=== PATIENT | male | born 1940 | race Caucasian/White ===

== ENCOUNTER 2019-10-27 12:18 | Outpatient (CLI) | payer MEDICARE, OTHER ==
[2019-10-27] VITALS (22 sets, daily range): BP systolic 131–156; BP diastolic 73–102
[~2019-10-27 12:18] MED LIST: ASPI-1264 PO; COLC0.6T66 PO; GLUC1CAP17 PO; IND25C PO; NIAC-23 PO; OMEG1CAP54 PO; RED600TA PO; SAW1CAPS3 PO; SOTA80TA73 PO
== END 2019-10-27 23:59 | disposition home or self-care (01) ==
LOC: CARD DIAG 12:18
PROVIDERS: ATTEND Internal Medicine Cardiovascular Disease
DX: R55 Syncope and collapse (principal)
CPT/HCPCS: 93660

== ENCOUNTER 2019-12-03 05:56 | Day surgery (SDC) | payer MEDICARE, OTHER ==
[2019-12-02 12:09] LABS: BASOPHILS # (AUTO) 0.1 X10'3 (0-0.2); EOSINOPHILS # (AUTO) 0.2 X10'3 (0-0.9); EOSINOPHILS % (AUTO) 2.9 % (0-6); HEMOGLOBIN 14.5 g/dl (14.0-17.9); LYMPHOCYTES # (AUTO) 0.9 X10'3 (1.1-4.8); LYMPHOCYTES % (AUTO) 16.8 % (21-51); MEAN CORPUSCULAR HEMOGLOBIN 33.9 PG (27.0-31.0); MEAN CORPUSCULAR HGB CONC 33.8 g/dL (33.0-36.5); MEAN CORPUSCULAR VOLUME 100.3 FL (78-98); MEAN PLATELET VOLUME 8.6 FL (7.4-10.4); MONOCYTES # (AUTO) 0.5 X10'3 (0-0.9); MONOCYTES % (AUTO) 9.3 % (2-12); NEUTROPHILS # (AUTO) 3.8 X10'3 (1.8-7.7); PLATELET COUNT 203 X10'3 (140-440); RED BLOOD COUNT 4.29 X10'6 (4.70-6.10); RED CELL DISTRIBUTION WIDTH 13.8 % (11.5-14.5); WHITE BLOOD COUNT 5.5 X10'3 (4.5-11.0)
[2019-12-02 12:22] LABS: PARTIAL THROMBOPLASTIN TIME 29 SECONDS (22-32)
[2019-12-02 12:23] LABS: ALBUMIN 3.3 G/DL (3.4-5.0); ANION GAP 7 (8-16); BLOOD UREA NITROGEN 21 MG/DL (7-18); BUN/CREATININE RATIO 17.8 (5.4-32.0); CALCIUM 8.4 MG/DL (8.5-10.1); CHLORIDE 105 MMOL/L (99-107); CREATININE 1.18 MG/DL (0.60-1.10); POTASSIUM 4.7 MMOL/L (3.5-5.1); SODIUM 141 MMOL/L (135-145); TOTAL CARBON DIOXIDE 29.1 MMOL/L (24-32); eGFR 59 ML/MIN
[2019-12-02 12:25] LABS: GLUCOSE 111 MG/DL (70-104)
[2019-12-03] VITALS (10 sets, daily range): BP systolic 111–141; BP diastolic 75–88
[~2019-12-03] VITALS: Ht 170.2 cm; Wt 73.5 kg
[2019-12-03] MEDS ORDERED: normal saline 1000ml 1,000 ML IV SCH (06:45)
[2019-12-03] MEDS ORDERED: cefazolin/dext.iso 2gm/50ml 50 ML IV ONE (06:50)
[2019-12-03] MEDS ORDERED: CARV-49 PO (07:01)
[2019-12-03] MEDS ORDERED: AMIO200T61 PO (07:02)
[2019-12-03] MEDS ORDERED: LISI10TA4 PO (07:03)
[2019-12-03] MEDS ORDERED: APIX5TAB3 PO (07:04)
[2019-12-03] MEDS ORDERED: fentaNYL/PF 50MCG/1 ML 2ML syringe ONE (07:42)
[2019-12-03] MEDS ORDERED: midazolam 2 mg/2 ml injection ONE (07:42)
[2019-12-03] MEDS ORDERED: ceFAZolin 1000mg inj ONE (07:43)
[2019-12-03] MEDS ORDERED: LIDOcaine 1% W/epiNEPHrine 1:100,000 20ml vial ONE (07:43)
[2019-12-03] MEDS ORDERED: HYDROcodone/acetaminophen 10/325mg tab PO PRN (10:10)
[2019-12-03] MEDS ORDERED: HYDROcodone/acetaminophen 5mg/325mg tablet PO PRN (10:10)
[2019-12-03] MEDS ORDERED: vancomycin/NS 1 GM ADD-VANTAGE 250 ML X 1 DOSE IV ONE (11:00)
== END 2019-12-03 14:15 | disposition home or self-care (01) ==
LOC: SSTAY O 05:56
PROVIDERS: ATTEND Internal Medicine Cardiovascular Disease
DX: I49.5 Sick sinus syndrome (principal); I48.0 Paroxysmal atrial fibrillation
CPT/HCPCS: 33208; 36415; 71046; 80048; 85025; 85610; 85730; 99152; 99153; C1785; C1894; C1898; J0690; J2250; J3010; J3370; J7030; A4565; A4620

== ENCOUNTER 2019-12-20 09:50 | Emergency (ER) | payer MEDICARE, OTHER ==
[~2019-12-20] VITALS: Ht 170.2 cm; Wt 72.7 kg
[~2019-12-20 09:50] MED LIST changes: +AMIO200T61 PO; +APIX5TAB3 PO; -ASPI-1264 PO; +CARV-49 PO; -COLC0.6T66 PO; -GLUC1CAP17 PO; -IND25C PO; +LISI10TA4 PO; -NIAC-23 PO; -OMEG1CAP54 PO; -RED600TA PO; -SAW1CAPS3 PO; -SOTA80TA73 PO
[2019-12-20 09:51] VITALS: BP 135/83
--- NOTE | 2019-12-20 10:08 | NUR ---
state last bm was 12/19/19 and was normal but today he feels like he need to go to the bathroom but can not go
[2019-12-20] MEDS ORDERED: docusate sod 100mg capsule PO ONE (11:05)
[2019-12-20] MEDS ORDERED: magnesium hydroxide 30ml (MOM) UD suspension PO ONE (11:05)
[2019-12-20] MEDS ORDERED: POLY17PO10 PO (11:10)
[2019-12-20] MEDS ORDERED: GLYC-23 RC (11:10)
== END 2019-12-20 11:39 | disposition home or self-care (01) ==
LOC: ER 09:50
DX: K59.00 Constipation, unspecified (principal); I48.91 Unspecified atrial fibrillation; Z95.0 Presence of cardiac pacemaker; Z79.899 Other long term (current) drug therapy; Z88.6 Allergy status to analgesic agent
CPT/HCPCS: 99283

== ENCOUNTER 2019-12-30 07:47 | Day surgery (SDC) | payer MEDICARE, OTHER ==
[2019-12-29 11:12] LABS: BASOPHILS % (AUTO) 0.7 % (0-1); EOSINOPHILS # (AUTO) 0.2 X10'3 (0-0.9); EOSINOPHILS % (AUTO) 2.6 % (0-6); HEMOGLOBIN 14.6 g/dl (14.0-17.9); LYMPHOCYTES # (AUTO) 0.8 X10'3 (1.1-4.8); LYMPHOCYTES % (AUTO) 13.2 % (21-51); MEAN CORPUSCULAR HGB CONC 33.9 g/dL (33.0-36.5); MEAN CORPUSCULAR VOLUME 100.1 FL (78-98); MEAN PLATELET VOLUME 8.2 FL (7.4-10.4); MONOCYTES # (AUTO) 0.5 X10'3 (0-0.9); MONOCYTES % (AUTO) 8.7 % (2-12); NEUTROPHILS # (AUTO) 4.7 X10'3 (1.8-7.7); NEUTROPHILS % (AUTO) 74.8 % (42-75); PLATELET COUNT 167 X10'3 (140-440); RED CELL DISTRIBUTION WIDTH 14.3 % (11.5-14.5); WHITE BLOOD COUNT 6.3 X10'3 (4.5-11.0)
[2019-12-29 11:21] LABS: ALBUMIN 3.2 G/DL (3.4-5.0); ANION GAP 3 (8-16); BLOOD UREA NITROGEN 15 MG/DL (7-18); BUN/CREATININE RATIO 12.7 (5.4-32.0); CALCIUM 8.3 MG/DL (8.5-10.1); CHLORIDE 107 MMOL/L (99-107); CREATININE 1.18 MG/DL (0.60-1.10); GLUCOSE 79 MG/DL (70-104); POTASSIUM 4.1 MMOL/L (3.5-5.1); SODIUM 141 MMOL/L (135-145); TOTAL CARBON DIOXIDE 30.9 MMOL/L (24-32); eGFR 59 ML/MIN
[~2019-12-30] VITALS: Ht 170.2 cm; Wt 73.3 kg
[2019-12-30] VITALS (15 sets, daily range): BP systolic 108–139; BP diastolic 63–88
[~2019-12-30 07:47] MED LIST changes: +GLYC-23 RC; +POLY17PO10 PO
[2019-12-30] MEDS ORDERED: MIDAZolam 1mg/ml 10ml vial IV ONE (08:05)
[2019-12-30] MEDS ORDERED: normal saline 1000ml 1,000 ML IV PRN (08:05)
[2019-12-30] MEDS ORDERED: amiodarone in dextrose, iso-osm 150mg/100ml bag IV ONE (08:10)
[2019-12-30] MEDS ORDERED: diphenhydrAMINE 25mg capsule PO ONE (08:10)
[2019-12-30] MEDS ORDERED: atropine 0.1mg/ml 10ml syringe IV ONE (08:10)
[2019-12-30] MEDS ORDERED: morphine 10mg/ml inj. IV ONE (08:10)
[2019-12-30] MEDS ORDERED: LORazepam 0.5 MG tablet PO ONE (08:10)
[2019-12-30] MEDS ORDERED: AMIO200T61 PO (08:19)
[2019-12-30] MEDS ORDERED: normal saline 1000ml 1,000 ML IV SCH (08:50)
== END 2019-12-30 12:05 | disposition home or self-care (01) ==
LOC: SSTAY O 07:47
PROVIDERS: ATTEND Internal Medicine Cardiovascular Disease
DX: I48.91 Unspecified atrial fibrillation (principal); I48.19 Other persistent atrial fibrillation; I49.5 Sick sinus syndrome; G47.30 Sleep apnea, unspecified
CPT/HCPCS: 36415; 80048; 85025; 85610; 92960; 93005

== ENCOUNTER 2020-01-12 14:41 | Observation (INO) | payer MEDICARE, OTHER ==
[~2020-01-12] VITALS: Ht 170.2 cm; Wt 75.0 kg
[~2020-01-12 14:41] MED LIST changes: -GLYC-23 RC; -POLY17PO10 PO
[2020-01-12 15:00] LABS: BASOPHILS % (AUTO) 0.5 % (0-1); EOSINOPHILS # (AUTO) 0.1 X10'3 (0-0.9); EOSINOPHILS % (AUTO) 0.6 % (0-6); HEMATOCRIT 42.4 % (42.0-52.0); HEMOGLOBIN 14.7 g/dl (14.0-17.9); LYMPHOCYTES # (AUTO) 0.9 X10'3 (1.1-4.8); MEAN CORPUSCULAR HEMOGLOBIN 34.6 PG (27.0-31.0); MEAN CORPUSCULAR HGB CONC 34.7 g/dL (33.0-36.5); MEAN CORPUSCULAR VOLUME 99.7 FL (78-98); MONOCYTES # (AUTO) 0.8 X10'3 (0-0.9); MONOCYTES % (AUTO) 8.8 % (2-12); NEUTROPHILS # (AUTO) 7.5 X10'3 (1.8-7.7); NEUTROPHILS % (AUTO) 80.1 % (42-75); PLATELET COUNT 194 X10'3 (140-440); RED BLOOD COUNT 4.25 X10'6 (4.70-6.10); RED CELL DISTRIBUTION WIDTH 13.9 % (11.5-14.5); WHITE BLOOD COUNT 9.4 X10'3 (4.5-11.0)
[2020-01-12 15:18] LABS: ALANINE AMINOTRANSFERASE 28 U/L (12-78); ALBUMIN 2.9 G/DL (3.4-5.0); ALBUMIN/GLOBULIN RATIO 0.7 (1.1-1.5); ALKALINE PHOSPHATASE 152 IU/L (46-116); ANION GAP 5 (8-16); ASPARTATE AMINO TRANSFERASE 28 U/L (10-37); BILIRUBIN,TOTAL 0.8 MG/DL (0.1-1.0); BLOOD UREA NITROGEN 20 MG/DL (7-18); BUN/CREATININE RATIO 16.3 (5.4-32.0); CALCIUM 8.3 MG/DL (8.5-10.1); CHLORIDE 105 MMOL/L (99-107); CREATININE 1.23 MG/DL (0.60-1.10); POTASSIUM 4.2 MMOL/L (3.5-5.1); SODIUM 140 MMOL/L (135-145); TOTAL CARBON DIOXIDE 30.5 MMOL/L (24-32); TOTAL PROTEIN 7.3 G/DL (6.4-8.2); eGFR 56 ML/MIN
[2020-01-12 15:26] LABS: PARTIAL THROMBOPLASTIN TIME 32 SECONDS (22-32)
[2020-01-12 15:27] LABS: GLUCOSE 146 MG/DL (70-104)
[2020-01-12] MEDS ORDERED: iohexol 350MG/ML 100ml bottle IV ONE (15:44)
--- NOTE | 2020-01-12 16:04 | NUR ---
FIELD START SINGLE PORT CHANGED TO OUR Y-PORT FOR CTA PER RHETT MAIL HANDLER EQUIPMENT OPERATOR REQUEST DUE TO TESTING NEEDS, PT NOW TO CT VIA WHEELCHAIR WITH MAIL HANDLER EQUIPMENT OPERATOR PER ORDERS.
--- NOTE | 2020-01-12 16:21 | NUR ---
BACK FROM CT AT THIS TIME VIA WHEELCHAIR, NO SIGNS OF DISTRESS NOTED.
[2020-01-12] MEDS ORDERED: potassium Cl 20 mEq SR tablet PO PRN ×2 (17:20)
[2020-01-12] MEDS ORDERED: acetaminophen 325mg tablet PO PRN (17:20)
[2020-01-12] MEDS ORDERED: aminophylline 250mg/10ml inj. IV PRN (17:20)
[2020-01-12] MEDS ORDERED: ondansetron/PF 4mg/2ml inj IV PRN (17:20)
[2020-01-12] MEDS ORDERED: magnesium 2GM in 50ml NS 50 ML IV PRN (17:20)
[2020-01-12] MEDS ORDERED: magnesium Cl slow-release 64mg tablet PO PRN (17:20)
[2020-01-12] MEDS ORDERED: metoprolol tartrate 1mg/ml inj IV PRN (17:20)
[2020-01-12] MEDS ORDERED: potassium CL 10mEq/100ml bag 100 ML IV PRN ×2 (17:20)
[2020-01-12] MEDS ORDERED: regadenoson 0.4mg/5ml syringe IV ONE (17:20)
[2020-01-12] MEDS ORDERED: nitroGLYCERIN 0.4mg SUBLingual tab SL PRN (17:20)
[2020-01-12] MEDS ORDERED: magnesium 4gm in 100ml NS 100 ML IV PRN (17:20)
[2020-01-12] MEDS: lisinopril 10 MG tablet PO SCH (17:35)
[2020-01-12] MEDS: amiodarone 200mg tablet PO SCH (17:35)
--- NOTE | 2020-01-12 18:16 | NUR ---
CALLED JEFRY BACK AT [phone] GAVE UPDATE OF PT BEING ADMITTED AND THEN TRANSFERED HER INTO PT ROOM PHONE PER REQUEST
[2020-01-12] MEDS ORDERED: carvedilol 6.25mg tablet PO SCH (20:00)
[2020-01-12] MEDS ORDERED: heparin, porcine 5000 units/ml vial SQ SCH (20:00)
[2020-01-12] MEDS: K and/or MAG REPLACEMENT MC SCH (20:00)
--- NOTE | 2020-01-12 20:06 | NUR ---
PT GIVEN SANDWICH, JUICE, MILK, CHEESE STICK AND YOGURT. HE IS SITTING UP AT THE BEDSIDE AND DENIES ADDITIONAL NEEDS AT THIS TIME.
[2020-01-12] MEDS: apixaban 5mg tablet PO SCH (20:22)
[2020-01-12] MEDS ORDERED: temazepam 15mg capsule PO PRN (21:00)
--- NOTE | 2020-01-12 22:07 | NUR ---
sbar to tamara millard no questions or concerns after assuming care
[2020-01-12] MEDS ORDERED: carVEDilol 3.125mg tablet PO SCH (22:25)
[2020-01-12 23:30] VITALS: BP 128/74
[2020-01-13] VITALS (9 sets, daily range): BP systolic 109–166; BP diastolic 65–79
[2020-01-13 03:08] LABS: BASOPHILS % (AUTO) 0.5 % (0-1); EOSINOPHILS # (AUTO) 0.1 X10'3 (0-0.9); EOSINOPHILS % (AUTO) 1.2 % (0-6); HEMATOCRIT 42.3 % (42.0-52.0); HEMOGLOBIN 14.6 g/dl (14.0-17.9); LYMPHOCYTES # (AUTO) 0.8 X10'3 (1.1-4.8); LYMPHOCYTES % (AUTO) 9.1 % (21-51); MEAN CORPUSCULAR HEMOGLOBIN 34.6 PG (27.0-31.0); MEAN CORPUSCULAR HGB CONC 34.5 g/dL (33.0-36.5); MEAN CORPUSCULAR VOLUME 100.3 FL (78-98); MEAN PLATELET VOLUME 8.3 FL (7.4-10.4); MONOCYTES # (AUTO) 0.9 X10'3 (0-0.9); MONOCYTES % (AUTO) 10.5 % (2-12); NEUTROPHILS % (AUTO) 78.7 % (42-75); PLATELET COUNT 171 X10'3 (140-440); RED BLOOD COUNT 4.22 X10'6 (4.70-6.10); RED CELL DISTRIBUTION WIDTH 13.9 % (11.5-14.5); WHITE BLOOD COUNT 8.9 X10'3 (4.5-11.0)
[2020-01-13 03:22] LABS: ALBUMIN 2.8 G/DL (3.4-5.0); ANION GAP 7 (8-16); BLOOD UREA NITROGEN 18 MG/DL (7-18); BUN/CREATININE RATIO 16.2 (5.4-32.0); CALCIUM 8.6 MG/DL (8.5-10.1); CHLORIDE 105 MMOL/L (99-107); CREATININE 1.11 MG/DL (0.60-1.10); GLUCOSE 95 MG/DL (70-104); MAGNESIUM 2.1 MG/DL (1.5-2.4); SODIUM 139 MMOL/L (135-145); TOTAL CARBON DIOXIDE 27.3 MMOL/L (24-32); eGFR 64 ML/MIN
--- NOTE | 2020-01-13 06:37 | NUR ---
Patient in room [facility]. I have received report from TITUS Tang and had the opportunity to ask questions and assume patient care.
[2020-01-13] MEDS ORDERED: pantoprazole 40mg Tablet.DR PO SCH (07:30)
[2020-01-13] MEDS: amiodarone 200mg tablet PO SCH (07:59)
[2020-01-13] MEDS: apixaban 5mg tablet PO SCH (08:00)
[2020-01-13] MEDS ORDERED: regadenoson 0.4mg/5ml syringe IV ONE (08:00)
[2020-01-13] MEDS: K and/or MAG REPLACEMENT MC SCH (08:00)
[2020-01-13] MEDS: lisinopril 10 MG tablet PO SCH (08:00)
--- NOTE | 2020-01-13 08:35 | NUR ---
Pt transported to [facility] via wheelchair.
--- NOTE | 2020-01-13 10:40 | NUR ---
Pt back from [facility]
[2020-01-13] MEDS ORDERED: PANT40TA4 PO (12:12)
--- NOTE | 2020-01-13 13:29 | NUR ---
Pt discharged per nursing. Discharge instructions and medications reviewed. New prescription e-scripted to Roc [facility]. Pt instructed to follow up with PCP and Dr Santos in 1-2 weeks. IV DC'd, cannula intact. Tele monitor removed. Pt currently waiting for to arrive at hospital for ride home. Will continue to monitor.
--- NOTE | 2020-01-14 14:55 | NUR ---
Case Management DC follow up: spoke to pt spouse/Kristie via telephone: Reported "doing okay" "just a little trouble w/sciatica (R)". R foot a little swollen, pt on the couch w/leg elevated. Spoke to Dr Santos. Denies CP, SOB, resp distress, emergent general pain, NV, dizziness, abd pain, [place], blurry vision, dizziness, syncope episodes, diaphoresis, fever. Verbalizes understanding of current/new Rx medications, why prescribed. Taking as ordered, no ase noted r/t polypharmacy. Verbalizes understanding of s/s that would warrant -/ER visit for evaluation. Acknowledges importance of scheduling/keeping follow-up w/PCP: Bartolo 01/28/2020, Specialist: Tom/getting records, will call pt back w/appt date. Needs met, questions answered at DC. No further questions at this time.
== END 2020-01-13 13:52 | disposition home or self-care (01) ==
LOC: ER 14:42 → ED HOLD 17:19 → SUR 3N 22:23
PROVIDERS: ADMIT Internal Medicine; ATTEND Internal Medicine
DX: R07.89 Other chest pain (principal); I48.91 Unspecified atrial fibrillation; I10 Essential (primary) hypertension; K21.9 Gastro-esophageal reflux disease without esophagitis; N17.9 Acute kidney failure, unspecified; J44.9 Chronic obstructive pulmonary disease, unspecified; G47.30 Sleep apnea, unspecified; Z95.0 Presence of cardiac pacemaker; Z85.72 Personal history of non-Hodgkin lymphomas; Z86.73 Personal history of transient ischemic attack (TIA), and cerebral infarction without residual deficits; Z79.01 Long term (current) use of anticoagulants; Z79.899 Other long term (current) drug therapy; Z88.6 Allergy status to analgesic agent
CPT/HCPCS: 36415; 71045; 71275; 78452; 80048; 80053; 83735; 83880; 84484; 85025; 85610; 85730; 87081; 93005; 93017; 93306; 99285; A9500; G0378; J2785; Q9967

== ENCOUNTER 2024-11-17 06:53 | Day surgery (SDC) | payer MEDICARE, OTHER ==
[2024-11-16 11:18] LABS: ALBUMIN 3.2 G/DL (3.4-5.0); ANION GAP 5 (8-16); BLOOD UREA NITROGEN 31 MG/DL (7-18); BUN/CREATININE RATIO 23.3 (10.0-20.0); CALCIUM 8.8 MG/DL (8.5-10.1); CHLORIDE 105 MMOL/L (99-107); CREATININE 1.33 MG/DL (0.60-1.10); POTASSIUM 4.8 MMOL/L (3.5-5.1); PRO BRAIN NATRIURETIC PEPTIDE 1682 PG/ML (0-450); SODIUM 141 MMOL/L (135-145); TOTAL CARBON DIOXIDE 31.3 MMOL/L (24-32); eGFR 51 ML/MIN
[2024-11-16 11:27] LABS: GLUCOSE 82 MG/DL (70-104)
[~2024-11-17] VITALS: Ht 170.2 cm; Wt 70.8 kg
[2024-11-17] VITALS (11 sets, daily range): BP systolic 121–147; BP diastolic 73–83; PULSE 69–80; RESP 11–18; TEMP 97.8; O2SAT 96–100
[~2024-11-17 06:53] MED LIST changes: +AMI200T PO; -AMIO200T61 PO; +LISI10TA27 PO; -LISI10TA4 PO; +PANT40TA54 PO
[2024-11-17] MEDS ORDERED: METO25TA6 PO (07:16)
[2024-11-17] MEDS ORDERED: LORazepam 0.5 MG tablet PO ONE (07:20)
[2024-11-17] MEDS ORDERED: diphenhydrAMINE 25mg capsule PO ONE (07:20)
[2024-11-17] MEDS ORDERED: amiodarone 150mg/dext, iso-os 100 ML IV ONE (07:20)
[2024-11-17] MEDS ORDERED: atropine 0.1mg/ml 10ml syringe IV ONE (07:20)
[2024-11-17] MEDS ORDERED: FURO-150 PO (07:21)
[2024-11-17 07:46] LABS: BASOPHILS # (AUTO) 0.1 X10'3 (0-0.2); BASOPHILS % (AUTO) 0.8 % (0-1); EOSINOPHILS # (AUTO) 0.2 X10'3 (0-0.9); LYMPHOCYTES % (AUTO) 14.1 % (21-51); MEAN CORPUSCULAR HGB CONC 33.3 g/dL (33.0-36.5); MEAN CORPUSCULAR VOLUME 102.3 FL (78-98); MEAN PLATELET VOLUME 8.7 FL (7.4-10.4); MONOCYTES # (AUTO) 0.6 X10'3 (0-0.9); MONOCYTES % (AUTO) 8.3 % (2-12); NEUTROPHILS % (AUTO) 73.8 % (42-75); PLATELET COUNT 199 X10'3 (140-440); RED CELL DISTRIBUTION WIDTH 14.5 % (11.5-14.5); WHITE BLOOD COUNT 6.8 X10'3 (4.5-11.0)
[2024-11-17] MEDS: normal saline 1000ml 1,000 ML IV SCH (08:36)
[2024-11-17] MEDS: MIDAZolam 1mg/ml 10ml vial IV ONE (08:36)
[2024-11-17] MEDS: morphine 10mg/ml inj. IV ONE (08:36)
== END 2024-11-17 10:05 | disposition home or self-care (01) ==
LOC: SSTAY O 06:53
PROVIDERS: ATTEND Internal Medicine Cardiovascular Disease
DX: I48.0 Paroxysmal atrial fibrillation (principal); I48.92 Unspecified atrial flutter; I08.3 Combined rheumatic disorders of mitral, aortic and tricuspid valves; G47.30 Sleep apnea, unspecified; E78.5 Hyperlipidemia, unspecified; I10 Essential (primary) hypertension; Z88.8 Allergy status to other drugs, medicaments and biological substances; Z98.890 Other specified postprocedural states; Z79.899 Other long term (current) drug therapy; Z90.49 Acquired absence of other specified parts of digestive tract; Z82.49 Family history of ischemic heart disease and other diseases of the circulatory system
CPT/HCPCS: 36415; 80048; 83880; 85025; 92960; 93005; J2250; J2270; J7030; J2274

== ENCOUNTER 2025-07-02 10:17 | Emergency (ER) | payer MEDICARE, OTHER ==
[~2025-07-02] VITALS: Ht 170.2 cm; Wt 80.0 kg
[~2025-07-02 10:17] MED LIST changes: -AMI200T PO; +AMIO200T76 PO; -CARV-49 PO; +FURO-150 PO; -LISI10TA27 PO; +METO25TA6 PO; -PANT40TA54 PO
--- NOTE | 2025-07-02 11:34 | RADIOLOGY REPORT ---
EXAM: DI HAND, COMPLETE (3VW MIN) CLINICAL INDICATION: HAND PAIN TECHNIQUE: DI HAND, COMPLETE (3VW MIN) Comparison: DI ELBOW, COMPLETE (3VW MIN) on DOS: 07/02/25 FINDINGS/IMPRESSION: There is no evidence of acute fracture or dislocation. Advanced DIP osteoarthritis. The alignment is anatomical. There is no radiopaque foreign body.
--- NOTE | 2025-07-02 11:34 | RADIOLOGY REPORT ---
EXAM: DI ELBOW, COMPLETE (3VW MIN) CLINICAL INDICATION: ELBOW PAIN TECHNIQUE: DI ELBOW, COMPLETE (3VW MIN) Comparison: None FINDINGS/IMPRESSION: There is no evidence of acute fracture or dislocation. The visualized joint space is well maintained. The alignment is anatomical. There is no radiopaque foreign body.
--- NOTE | 2025-07-02 11:36 | RADIOLOGY REPORT ---
CHEST RADIOGRAPH Indication: Fall on left side. Technique: Single frontal view of the chest was obtained Comparison: None FINDINGS: Lines and Tubes: Dual lead left-sided pacemaker. Lungs: No focal consolidation. Pleura: No effusion. No pneumothorax. Cardiomediastinal contours: Unremarkable Bones: No acute osseous abnormality. IMPRESSION: No acute cardiopulmonary disease.
--- NOTE | 2025-07-02 11:36 | Physician Documentation ---
History of Present Illness ~ Chief Complaint: Mechanical Fall Stated Complaint: FALL Time Seen by MD: 11:11 Source: patient (4), family Mode of Arrival: EMS HPI Patient comes in for evaluation of left arm pain after a nonsyncopal fall that occurred three days ago when he was unable to step over a low wall. Patient fell on his left side, and hurt his left arm. He did not strike his head, did not have any loss of consciousness, denies any pain to the neck, back, pelvis, or abdomen. He does have some pain over the left posterior ribs and especially over the base of the left thumb, with some abrasion over the left elbow. Patient has been taking Tylenol, but last dose was about 24 hours ago. Tetanus within 5 Years?: No (unk) Medication Reconciliation Allergies: Coded Allergies: ibuprofen (Verified Allergy, Unknown, 03/25/14) Uncoded Allergies: MACADAMIA NUTS (Adverse Reaction, Intermediate, swelling to lips, 12/20/19) Scheduled Amiodarone Hcl (Cordarone), 1 TAB PO DAILY, (Reported) Apixaban (Eliquis), 1 TAB PO Q12H, (Reported) Furosemide* (Lasix*), 1 TAB PO Q48H, (Reported) Metoprolol Tartrate (Metoprolol Tartrate), 1 MG PO BID, (Reported) Past Medical History Past Medical History: Atrial Fibrillation, Hypertension, Sleep Apnea, Lymphoma Past Surgical History: pacemaker Smoking Status: Never smoker Alcohol Use: None Drug Use: none Lives with: Spouse Lives In: Home Review of Systems All Other Systems at this time: Reviewed and Negative Physical Exam Vital Signs: Temperature: 98.0, Source: Oral, Heart Rate: 70, Respiratory Rate: 18, BP: 137/71, Pulse Oximetry: 98, Weight: 80.000 Oxygen Flow Rate: 0 Physical Exam General: Pt is awake, alert, oriented x4 in no acute distress and well appearing. Head: Normocephalic and atraumatic. Eyes: Conjunctiva normal. ENT: Mucous membranes moist. Neck: Supple. Completely nontender. Chest: Clear to auscultation bilaterally, without rales, rhonchi, or wheezes. There is no accessory muscle use or retractions. Cardiac: Regular rate and rhythm without murmurs, gallops or rubs. Palpation over the lower left ribs in the posterior axillary line reveals point tenderness, no bony crepitus or subcutaneous air noted. Abd: Soft, nondistended, nontender in any of the four quadrants, with normoactive bowel sounds. No guarding or rebound. Extremities: Right arm and bilateral lower extremities without trauma. Left shoulder normal without tenderness to the point of the shoulder, scapula, clavicle. No tenderness over the biceps/triceps/humerus. Full range of motion at the left elbow. Patient has a superficial abrasion/skin tear over the lateral elbow. Forearm without tenderness. Patient has diffuse mild swelling of the entire left hand, with tenderness maximal at the 1st CMC joint, less so at the 1st MCP joint and IP joint. Sensation and motor are intact in the median/radial/ulnar nerve distribution. Minimal tenderness present. Skin: [place], warm and dry with no significant rash appreciated. Neuro: Cranial nerves II-XII grossly intact. The gait is normal. Progress Progress Note Patient is radiographs evaluated by me and by the radiologist. There is no evidence of any discrete fracture, although I remain concerned about the possibility of an occult fracture at the scaphoid or the base of the 1st metacarpal and patient has been immobilized in a thumb spica splint for protection. His neurovascular status to the hand is intact, although there is a degree of swelling as the injury occurred three days ago. Patient has been advised to keep the hand elevated as much as possible to minimize swelling and pain. He already sees Dr. Dodge, who is a hand surgeon, and I have advised him to follow up with Dr. Dodge next week if possible to re-evaluate the hand; I recommend repeat x-rays of the thumb in a week to 10 days. Patient with mild tenderness along the ribs but no bony crepitus or subcutaneous air, and x-ray showing no evidence for rib fracture or pneumothorax. I have discussed with the patient and his family the need to take deep breaths frequently to prevent atelectasis and pneumonia The wound on the patient's left elbow was debrided by me, as there was quite a lot of slough and devitalized skin and necrotic tissue from the wound that occurred three days ago. There was no evidence for infection, no surrounding erythema, no purulent drainage. I debrided the necrotic tissue away in the wound was dressed with antibiotic ointment and dry dressings. His tetanus was updated. Patient advised to follow up with his doctor for follow-up. The fall was nonsyncopal, and patient has been stable here without any hemodynamic instability. He is to be discharged home, he and family understand discharge instructions. He is to return to the emergency department should he have any new symptoms or any worsening of his condition. Results/Orders Results/Orders Orders - LORNE JON MD Hand, Complete (3vw Min) (07/02/25 10:40) Elbow, Complete (3vw Min) (07/02/25 10:40) Chest,Single View (07/02/25 11:01) Wound Care Orders (07/02/25 11:36) Celecoxib Capsule (Celebrex Capsule) (07/02/25 11:40) Completed Orders - LORNE JON MD Hand, Complete (3vw Min) (07/02/25 10:40) Elbow, Complete (3vw Min) (07/02/25 10:40) Chest,Single View (07/02/25 11:01) Tetanus/Pertuss/Diph Acell/Pf (Boostrix (07/02/25 11:40) Acetaminophen 325mg Tablet (Tylenol Tabl (07/02/25 11:40) Lidocaine 4% Topical 4ml (Lidocaine 4% T (07/02/25 12:55) Bacitracin Ointment (Bacitracin Ointment (07/02/25 12:55) Lidocaine 4% Topical Amy 50ml (Xylocaine (07/02/25 13:05) Medications Received in ER Medications (Trade) Dose Ordered Sig/Artemio Route PRN Reason Start Time Stop Time Status Last Admin Dose Admin (Boostrix vaccine syringe) 0.5 ml ONCE ONCE IMVAC 07/02/25 11:40 07/02/25 11:41 DC 07/02/25 11:50 0.5 ML (Tylenol tablet) 650 mg ONCE ONCE PO 07/02/25 11:40 07/02/25 11:41 DC 07/02/25 11:49 650 MG (CeleBREX capsule) 100 mg ONCE PO 07/02/25 11:40 07/02/25 11:48 100 MG (bacitracin ointment) 1 applic ONCE ONCE TP 07/02/25 12:55 07/02/25 12:56 DC 07/02/25 13:08 1 APPLIC (Xylocaine 4% Topical Amy) 50 ml ONCE ONCE TP 07/02/25 13:05 07/02/25 13:06 DC 07/02/25 13:08 50 ML Vital Signs 07/02/25 07/02/25 07/02/25 07/02/25 10:22 10:33 10:41 13:58 Temp 98.0 Pulse 72 70 70 Resp 16 18 18 18 B/P (MAP) 142/79 137/71 (93) 132/74 (93) Pulse Ox 100 98 97 O2 Flow Rate 0 0 0 Medical Decision Making Additional Comment See progress note Departure Time of Disposition: 14:31 Disposition: 01 HOME / SELF CARE / HOMELESS Impression: Primary Impression: Fall Qualified Codes: W19.XXXA - Unspecified fall, initial encounter Additional Impressions: Abrasion Hand pain, left Chest wall pain Condition: Stable Discharge Instructions: Fall Prevention in the Home, Adult, [id number] Additional Instructions: Please remember to keep your hand elevated as much as possible, to help control swelling. You may take Tylenol as needed, and ice packs may help as well, 15 minutes at a time. Do not let the splint get wet. Please call Dr. Dodge's office today and make a follow-up appointment for next week, as I believe you would benefit from repeat x-rays of the hand to make sure there is no hidden fracture that we are not seeing today. Regarding your rib pain, this is likely to last a long time. Please make sure to take deep breaths at least hourly, in order to prevent pneumonia. The wound on your elbow needs to be washed with soap and water daily, and kept moist with an ointment and an absorbent dry gauze to be changed daily. Return to the ER if the wound becomes red or has any drainage that looks like pus. Return also if you have increasing cough, fever, or difficulty breathing, or if your hand has more pain, any numbness, color changes, or any other concerns. Referrals: NO PRIMARY CARE PROVIDER (PCP) Education Educated: Patient, Family Educated regarding: diagnosis, treatment LORNE JON MD Jul 02, 2025 11:36
[2025-07-02] MEDS: TETanus/Pertussis (Acell)/Diphther VAC/PF (Tdap-Adult) 0.5ml syringe IMVAC ONE (11:50)
[2025-07-02] MEDS ORDERED: LIDOcaine 40mg/ml topical solution MM ONE (12:55)
[2025-07-02] MEDS: LIDOcaine 4% (40 mg/ml) topical solution 50ml TP ONE (13:08)
[2025-07-02] MEDS: bacitracin 15gm ointment TP ONE (13:08)
[2025-07-02 14:47] VITALS: BP 132/74; PULSE 70; RESP 16; TEMP 98; O2SAT 97
== END 2025-07-02 14:50 | disposition home or self-care (01) ==
LOC: ER 10:17
DX: S50.312A Abrasion of left elbow, initial encounter (principal); R07.89 Other chest pain; I10 Essential (primary) hypertension; G47.30 Sleep apnea, unspecified; I48.91 Unspecified atrial fibrillation; Z88.6 Allergy status to analgesic agent; Z95.0 Presence of cardiac pacemaker; Z79.899 Other long term (current) drug therapy; W18.30XA Fall on same level, unspecified, initial encounter; Y93.89 Activity, other specified; Y92.89 Other specified places as the place of occurrence of the external cause; Y99.8 Other external cause status
CPT/HCPCS: 29125; 71045; 73080; 73130; 90715; 99284; A4565; A6258; A6402; A6446; A6449; G0008; 90471